=== PATIENT | male | born 1970 | race Caucasian/White ===

== ENCOUNTER 2019-02-10 11:49 | Emergency (ER) | payer SELFPAY ==
[~2019-02-10] VITALS: Ht 167.6 cm; Wt 99.6 kg
[2019-02-10 11:59] VITALS: Ht 167.6 cm; Wt 99.6 kg
[2019-02-10 13:08] LABS: BASOPHIL % 0.3 % (0-2); PLATELET COUNT 217 x10^3mcL (130-400)
[2019-02-10 13:52] LABS: CALCIUM 8.7 mg/dL (8.5-10.1); CARBON DIOXIDE 27.3 mmol/L (21-32); CHLORIDE SERUM 103 mmol/L (98-107); CREATININE SERUM 0.9 mg/dL (0.7-1.3); GFR1 > 60 mL/min; GLUCOSE SERUM 90 mg/dL (74-106); POTASSIUM SERUM 4.1 mmol/L (3.5-5.1); SODIUM SERUM 138 mmol/L (136-145)
[2019-02-10 14:03] LABS: ALBUMIN 3.9 g/dL (3.4-5.0); ALKALINE PHOSPHATASE 60 U/L (46-116); ALT/SGPT 76 U/L (16-63); AST/SGOT 32 U/L (15-37); BILIRUBIN TOTAL 0.6 mg/dL (0.20-1.00); HDL CHOLESTEROL 44 mg/dL (40-60); LIPASE 114 IU/L (73-393); T4(THYROXINE) 5.8 ug/dL (4.7-13.3); TOTAL PROTEIN, SERUM 7.6 g/dL (6.4-8.2)
[2019-02-10 14:18] LABS: CHOLESTEROL 252 mg/dL (<200)
[2019-02-10 14:30] LABS: microscopic required? NO
[2019-02-10 14:38] LABS: urine erythrocyte NEGATIVE (NEGATIVE)
[2019-02-10 14:51] LABS: AMPHETAMINE QUAL UR NONE DETECTED (See below)
[2019-02-10 17:20] VITALS: BP 129/80
== END 2019-02-10 17:20 | disposition home or self-care (01) ==
LOC: ED 11:49
PROVIDERS: Emergency Medicine
DX: M54.12 Radiculopathy, cervical region (principal); M25.512 Pain in left shoulder; R07.89 Other chest pain; R42 Dizziness and giddiness
CPT/HCPCS: 36415; 83880; J1100; J1885